=== PATIENT | female | born 1980 | race Caucasian/White ===

== ENCOUNTER 2018-10-17 03:33 | Emergency (ER) | payer SELFPAY ==
[2018-10-17] MEDS: KETOROLAC 30 MG INJ IM (04:47)
== END 2018-10-17 05:35 | disposition home or self-care (01) ==
LOC: E/R 03:33
DX: S20.219A Contusion of unspecified front wall of thorax, initial encounter (principal); R40.2142 Coma scale, eyes open, spontaneous, at arrival to emergency department; R40.2362 Coma scale, best motor response, obeys commands, at arrival to emergency department; R40.2252 Coma scale, best verbal response, oriented, at arrival to emergency department; J45.909 Unspecified asthma, uncomplicated; F17.210 Nicotine dependence, cigarettes, uncomplicated; S13.9XXA Sprain of joints and ligaments of unspecified parts of neck, initial encounter; V43.52XA Car driver injured in collision with other type car in traffic accident, initial encounter
CPT/HCPCS: 71045; 81025; 96372; 99284-25